=== PATIENT | female | born 1975 | race Caucasian/White ===

== ENCOUNTER 2018-01-14 14:20 | Emergency (ER) | payer BC, OTHER ==
[2018-01-14] MEDS ORDERED: Adacel (T-DAP) 0.5 ML VIAL ONE (14:54)
[2018-01-14] MEDS ORDERED: Bacitracin Zinc 1 Packet ONE (15:04)
== END 2018-01-14 15:20 | disposition home or self-care (01) ==
LOC: ERS 14:20
DX: S51.852A Open bite of left forearm, initial encounter (principal); W50.3XXA Accidental bite by another person, initial encounter
CPT/HCPCS: 90471; 90715

== ENCOUNTER 2019-09-28 17:10 | Emergency (ER) | payer BC ==
[2019-09-28] MEDS ORDERED: Ketorolac Tromethamine 30 MG/ML VIAL ONE (18:17)
--- NOTE | 2019-09-28 18:46 | RAD ---
RIGHT KNEE FOUR VIEWS: History: Fall with laceration. FINDINGS: There are no signs of fracture, dislocation, or joint effusion. No air within the joint space. IMPRESSION: Unremarkable right knee. POS: NEAL
== END 2019-09-28 18:48 | disposition home or self-care (01) ==
LOC: ERS 17:10
DX: S81.011A Laceration without foreign body, right knee, initial encounter (principal); M25.461 Effusion, right knee; W19.XXXA Unspecified fall, initial encounter
CPT/HCPCS: 12001; J1885